=== PATIENT | female | born 1930 | race Caucasian/White ===

== ENCOUNTER → 2016-11-04 | Outpatient (CLI) | payer MEDICARE, OTHER ==
[~2016-11-04] MED LIST: ASPIR 8181 MG PO; CLARITIN10 M2 PO; DILTIAZEM ER120 M1 PO; IMDUR ER TAB 3030 MG PO; LASIX TAB 20 MG20 MG PO; LEVAQUIN TAB 5500 MG PO; LOSARTAN-HCTZ1 EAC1 PO; NEURONTIN 100100 MG PO; NITROSTAT 0.40.4 MG PO; SYNTHROID 125125 MCG PO; TENORMIN 50 MG50 MG PO
[2016-11-04 14:35] LABS: HEMOGLOBIN 10.8 gm/dl (12.3-15.3); RED BLOOD COUNT 3.51 M/UL (4.00-5.10); WHITE BLOOD COUNT 2.4 K/UL (4.5-11.0)
== END ==
LOC: LAB 13:32
PROVIDERS: Internal Medicine Interventional Cardiology
DX: Z45.010 Encounter for checking and testing of cardiac pacemaker pulse generator [battery] (principal); R00.2 Palpitations; R06.02 Shortness of breath
CPT/HCPCS: 36415; 80048; 85025; 85610; 85730

== ENCOUNTER → 2016-11-06 | Outpatient (CLI) | payer MEDICARE, OTHER | LOC: CATH 06:44 | DX: Z45.010 Encounter for checking and testing of cardiac pacemaker pulse generator [battery] (principal); I10 Essential (primary) hypertension; E78.5 Hyperlipidemia, unspecified | CPT/HCPCS: C1785; J2250; J3370; J7040; J7050; J7070 ==

== ENCOUNTER → 2021-02-19 | Outpatient (CLI) | payer MEDICARE, OTHER ==
[~2021-02-19] MED LIST changes: +ALBUTEROL2.5 MG/3 M INH; +ANTIVERT 25MG T25 MG PO; +ATIVAN0.5 MG PO; +CLONAZEPAM0.125 MG PO; +CLOPIDOGREL75 MG PO; +HYZAAR 100-251 EACH PO; +LASIX20 MG PO; +LEVAQUIN750 MG PO; +LEVOTHYROXINE125 MCG PO; +LIPITOR TAB 2020 MG PO; +MACROBID 100 M100 MG PO; +OMEPRAZOLE40 MG PO; +PROTONIX40 MG PO; +SYNTHROID125 MCG PO; +ULTRAM50 MG PO; +VIBRAMYCIN100 MG PO; +XYLOCAINE 2% JE30 ML TOP; +ZOFRAN4 MG PO
== END ==
LOC: HEART 5 01-29 09:30
DX: I25.10 Atherosclerotic heart disease of native coronary artery without angina pectoris (principal); R07.89 Other chest pain; I49.3 Ventricular premature depolarization; Z95.5 Presence of coronary angioplasty implant and graft; I08.1 Rheumatic disorders of both mitral and tricuspid valves; I27.20 Pulmonary hypertension, unspecified
CPT/HCPCS: 93306